=== PATIENT | male | born 1970 | race Caucasian/White ===

== ENCOUNTER → 2018-12-27 08:22 | Outpatient (CLI) | payer OTHER, SELFPAY ==
[2018-12-27 09:55] LABS: Hematocrit 45.2 % (41-53); Hemoglobin 15.6 g/dL (13.5-17.5); Mean Corpuscular HGB Conc 34.5 % (30-36); Mean Corpuscular Hemoglobin 30.6 PG (26-34); Mean Corpuscular Volume 88.6 fL (80-100); Platelet Count 228 X10^3/uL (150-400); Red Cell Distribution Width 13.1 % (11.6-14.8); White Blood Cell Count 5.1 X10^3/uL (4.5-11.0)
[2018-12-27 10:07] LABS: Alanine Aminotransferase 40 IU/L (21-72); Albumin 4.4 g/dL (3.5-5.0); Albumin Globulin Ratio 1.4 (1.0-2.8); Alkaline Phosphatase 37 U/L (38-126); Aspartate Aminotransferase 37 IU/L (17-59); BUN Creatinine Ratio 23.8 (6-22); Bilirubin Total 0.9 mg/dL (0.2-1.3); Blood Urea Nitrogen 19 mg/dL (9-20); Calcium 9.8 mg/dL (8.4-10.2); Carbon Dioxide 30 mmol/L (22-32); Chloride 101 mmol/L (98-107); Cholesterol 142 mg/dL (140-199); Estimated Glomerular Filt Rate > 60.0 mL/min (>60); Globulin 3.2 g/dL (1.7-4.1); Glucose 89 mg/dL (70-100); HDL Cholesterol 53 mg/dL (40-60); HEMOLYSIS < 15 (0-50); LDL Cholesterol Calculated 80 mg/dL (<100); Potassium 4.1 mmol/L (3.4-5.1); Sodium 139 mmol/L (137-145); Total Protein 7.6 g/dL (6.3-8.2); Triglycerides 45 mg/dL (35-150)
[2018-12-27 10:37] LABS: Prostate Specific Antigen 0.535 ng/mL (0.10-4.00)
[2018-12-27 10:39] LABS: TSH w/ Reflex to FT4 1.16 uIU/mL (0.47-4.68)
[2018-12-27 11:59] LABS: Neutrophils Absolute Manual 3315 /uL (3000-5900); Total Cells Counted 100
[2018-12-27 12:00] LABS: RBC Morphology Normal Morphology
== END ==
PROVIDERS: PCP Family Medicine; Visit Provider Family Medicine
DX: M47.816 Spondylosis without myelopathy or radiculopathy, lumbar region (principal); N40.0 Benign prostatic hyperplasia without lower urinary tract symptoms
CPT/HCPCS: 36415; 80053; 80061; 84153; 84443; 85025

== ENCOUNTER → 2019-11-05 10:36 | Outpatient (CLI) | payer OTHER, SELFPAY ==
[2019-11-06 07:45] LABS: COVID19 Sendout Not Detected (Not Detect)
== END ==
PROVIDERS: PCP Family Medicine; Visit Provider Physician Assistant
DX: Z11.59 Encounter for screening for other viral diseases (principal)
CPT/HCPCS: 87635

== ENCOUNTER 2019-11-08 12:47 | Day surgery (SDC) | payer OTHER, SELFPAY ==
[2019-11-08 13:19] VITALS: BP 118/78; PULSE 54; RESP 16; TEMP 36.5; O2SAT 100; BMI 25.1
[2019-11-08] MEDS: LACTATED RINGERS 1,000 ML 200 ML IV (13:20)
--- NOTE | 2019-11-08 13:46 | PM.HP.1 ---
History of Present Illness History of Present Illness Date Patient Seen: 11/08/19 Time Patient Seen: 13:47 Chief complaint: SDC Narrative: The patient presents for colorectal sreening. They have never had any previous examination for such. No personal or family history of colon cancer. On further history denies any recent gastrointestinal symptoms. No nausea, vomiting, abdominal pain, loss of appetite, unexplained weight loss, change in bowel habits, diarrhea, constipation, melena, hematochezia, or bright red blood per rectum. Patient History Medical History Chicken pox (Resolved ~1974) Chronic back pain (Chronic ~2009) Fractures (Chronic) Hearing loss (Chronic ~2000) Mumps (Resolved ~1976) Ruptured tympanic membrane (Chronic ~2008) Shoulder pain (Chronic ~2009) Tinnitus (Chronic ~2000) Surgical History History of tonsillectomy History of vasectomy Family & Social History Family History Grandfather Cancer Diabetes mellitus Stroke Dementia Grandmother Cancer Grandfather Cancer Grandmother Cancer High cholesterol Social History: household members spouse Tobacco & Substance use: Smoking Status Never smoker alcohol intake current alcohol intake frequency 0-2 drinks per day Substance Use Type does not use Meds Home Medications and Allergies Home Medications Medication Instructions Recorded Confirmed Type multivitamin 1 tab PO DAILY 12/25/18 11/08/19 History ketoconazole 2 % topical cream 2 % TOPICAL BID #30 gm 07/26/19 11/08/19 Rx ketoconazole 2 % shampoo 1 applictn TOP 2XW #120 ml 07/30/19 11/08/19 Rx terbinafine HCl 250 mg tablet See Rx Instructions .ROUTE 08/14/19 11/08/19 Rx .COMPLEX #4 tablet Allergies Allergy/AdvReac Type Severity Reaction Status Date / Time No Known Drug Allergies Allergy Unknown Verified 02/06/19 14:35 [NO KNOWN DRUG ALLERGIES] Review of Systems Review of Systems Narrative: A 10 point review of systems is negative except as noted in the HPI Exam Vital Signs (past 8 hours): - 11/08/19 13:19 Temperature 97.7 F Pulse Rate 54 L Respiratory Rate 16 Blood Pressure 118/78 Pulse Oximetry 100 Oxygen Delivery Method Room Air Narrative Exam Narrative: General-no acute distress, well nourished HEENT-moist mucous membranes, no scleral icterus Neck-supple, no lymphadenopathy Chest- non labored respirations, clear to auscultation bilaterally Cardiac-regular rate no peripheral edema Abdomen-soft, nontender, non distended Extremities-warm, well perfused Neurological-alert and oriented, no focal deficits Assessment & Plan Assessment and plan (1) Screening for colon cancer: Status: Acute Assessment & Plan narrative: The patient requires colorectal screening and colonoscopy is recommended. Technical details were discussed. Risks, benefits, alternatives explained. Risks including but not limited to myocardial infarction, aspiration, bleeding, pain, missed lesion, incomplete examination, need for further radiographic studies, colonic perforation, and need for major abdominal surgery were discussed. All questions were answered to their satisfaction, and they are in agreement with this plan. COVID-19 COVID-19 status: Negative
--- NOTE | 2019-11-08 14:14 | PM.OP.ENDO ---
Operative Date/Time/Diagnoses Date of procedure: 11/08/19 Time of procedure: 14:14 Pre-op diagnosis: Screening colonoscopy Post-op diagnosis: same Procedure & Clinicians Study performed: Colonoscopy Same procedure as scheduled: Yes Indications: 49-year-old male presents for 1st routine screening colonoscopy Surgeon: Torey Gan Procedure Notes SCOAP/Timeout: Performed Procedure in detail: Patient placed in left lateral recumbent position. Time out was performed. Procedural sedation was administered with Versed and Fentanyl. Examination began with a thorough inspection of the perianal area there was no evidence of fissures, fistulae, external hemorrhoids or cutaneous malignancy. The colonoscopy scope was then placed into the rectum the the lumen was insufflated with air. The scope was carefully advanced forward. Ultimately the cecum was intubated and confirmed by identification of the ileocecal valve and the confluence of the taenia. The scope was then slowly withdrawn examining colon thoroughly in all directions. In the rectum the rectal columns were identified and retroflexion of the scope was performed for inspection of the distal rectum and anal canal. The colonoscopy was notable for the followin. Quality of the preparation-excellent 2. No masses or polyps Scope withdrawal time: 6 Sedation minutes: 20 Specimen(s): none sent Complications: none Impression: Normal colonoscopy Post-procedure Recommendations: Colonscopy in 10 years Disposition: same day surgery
[2019-11-08] MEDS: MIDAZOLAM 5 MG/5 ML VIAL IV (14:16)
[2019-11-08] MEDS: fentaNYL 250 MCG/5 ML INJ IV (14:17)
[2019-11-08 14:18] VITALS: BP 105/73; PULSE 58; RESP 12; TEMP 36.7; O2SAT 98
[2019-11-08 14:22] VITALS: BP 100/70; PULSE 52; RESP 12; O2SAT 97
[2019-11-08 14:29] VITALS: BP 98/69; PULSE 54; RESP 12; O2SAT 98
[2019-11-08 14:35] VITALS: BP 98/69; PULSE 64; RESP 16; TEMP 36.8; O2SAT 99
[2019-11-08 14:47] VITALS: BP 120/76; PULSE 51; RESP 16; TEMP 36.4; O2SAT 100
== END 2019-11-08 14:53 | disposition home or self-care (01) ==
PROVIDERS: PCP Family Medicine; Referring Provider Surgery; Visit Provider Surgery
PROC: 0DJD8ZZ Inspection of Lower Intestinal Tract, Via Natural or Artificial Opening Endoscopic (ICD-10-PCS; CPT 45378; principal; 2019-11-08 13:45)
DX: Z12.11 Encounter for screening for malignant neoplasm of colon (principal)
CPT/HCPCS: 45378; 99152; J2250; J3010

== ENCOUNTER → 2020-12-22 10:25 | Outpatient (CLI) | payer OTHER, SELFPAY ==
[2020-12-22 10:57] LABS: COVID19 -Nasal RAPID Negative (Negative)
== END ==
PROVIDERS: PCP Family Medicine; Visit Provider Nurse Practitioner Family
DX: Z20.822 Contact with and (suspected) exposure to COVID-19 (principal); R05 Cough; R09.81 Nasal congestion
CPT/HCPCS: 87635

== ENCOUNTER → 2022-05-26 10:09 | Outpatient (CLI) | payer OTHER, SELFPAY ==
[2022-05-26 10:38] LABS: Add Manual Diff / Slide Review NO; Basophils Absolute Auto 0 /uL (0-100); Basophils Percent Auto 0.9 % (0-2); Eosinophils Absolute Auto 100 /uL (0-450); Eosinophils Percent Auto 2.3 % (2-4); Hematocrit 44.7 % (41-53); Lymphocytes Absolute Auto 1500 /uL (1100-4500); Lymphocytes Percent Auto 32.2 % (25-40); Mean Corpuscular HGB Conc 33.6 % (30-36); Mean Corpuscular Hemoglobin 29.9 PG (26-34); Mean Corpuscular Volume 89.1 fL (80-100); Monocytes Absolute Auto 400 /uL (0-900); Neutrophils Absolute Auto 2700 /uL (1500-7000); Neutrophils Percent Auto 55.6 % (50-75); Platelet Count 197 X10^3/uL (150-400); Red Blood Cell Count 5.02 X10^6/uL (4.5-5.9); Red Cell Distribution Width 13.5 % (11.6-14.8); White Blood Cell Count 4.8 X10^3/uL (4.5-11.0)
[2022-05-26 10:50] LABS: Cholesterol 138 mg/dL (140-199); HDL Cholesterol 57 mg/dL (40-60); LDL Cholesterol Calculated 72 mg/dL (<100); Triglycerides 46 mg/dL (35-150)
[2022-05-26 11:22] LABS: Prostate Specific Antigen 0.621 ng/mL (0.10-4.00)
[2022-05-26 11:23] LABS: TSH w/ Reflex to FT4 1.03 uIU/mL (0.47-4.68)
[2022-05-26 11:24] LABS: Testosterone 292 ng/dL (71.8-623)
== END ==
PROVIDERS: PCP Family Medicine; Referring Provider Family Medicine; Visit Provider Family Medicine
DX: Z00.00 Encounter for general adult medical examination without abnormal findings (principal); M47.816 Spondylosis without myelopathy or radiculopathy, lumbar region; H40.059 Ocular hypertension, unspecified eye; R53.83 Other fatigue
CPT/HCPCS: 36415; 80061; 84153; 84403; 84443; 85025

== ENCOUNTER → 2023-06-10 10:02 | Outpatient (CLI) | payer OTHER, SELFPAY ==
[2023-06-10 10:29] LABS: Add Manual Diff / Slide Review NO; Basophils Absolute Auto 0 /uL (0-100); Basophils Percent Auto 0.4 % (0-2); Eosinophils Absolute Auto 100 /uL (0-450); Eosinophils Percent Auto 3.2 % (2-4); Hematocrit 43.1 % (41-53); Hemoglobin 14.8 g/dL (13.5-17.5); Lymphocytes Absolute Auto 1700 /uL (1100-4500); Lymphocytes Percent Auto 40.9 % (25-40); Mean Corpuscular HGB Conc 34.4 % (30-36); Mean Corpuscular Hemoglobin 30.3 PG (26-34); Monocytes Absolute Auto 400 /uL (0-900); Neutrophils Absolute Auto 1900 /uL (1500-7000); Neutrophils Percent Auto 46.5 % (50-75); Platelet Count 216 X10^3/uL (150-400); Red Cell Distribution Width 13.3 % (11.6-14.8); White Blood Cell Count 4.1 X10^3/uL (4.5-11.0)
[2023-06-10 10:49] LABS: Alanine Aminotransferase 31 IU/L (<50); Albumin Globulin Ratio 1.3 (1.0-2.8); Alkaline Phosphatase 39 U/L (38-126); Aspartate Aminotransferase 32 IU/L (17-59); BUN Creatinine Ratio 18.9 (6-22); Blood Urea Nitrogen 18 mg/dL (9-20); Calcium 9.2 mg/dL (8.4-10.2); Carbon Dioxide 30 mmol/L (22-32); Chloride 108 mmol/L (98-107); Cholesterol 126 mg/dL (140-199); Estimated Glomerular Filt Rate > 60 mL/min (>60); Globulin 3.1 g/dL (1.7-4.1); Glucose 97 mg/dL (70-100); HDL Cholesterol 52 mg/dL (40-60); HEMOLYSIS < 15 (0-50); LDL Cholesterol Calculated 61 mg/dL (<100); Potassium 4.3 mmol/L (3.4-5.1); Sodium 139 mmol/L (137-145); Total Protein 7.1 g/dL (6.3-8.2); Triglycerides 64 mg/dL (35-150)
[2023-06-10 11:16] LABS: Prostate Specific Antigen Scrn 0.574 ng/mL (0.1-4.0)
[2023-06-10 11:18] LABS: TSH w/ Reflex to FT4 1.21 uIU/mL (0.47-4.68)
[2023-06-10 11:19] LABS: Testosterone 336 ng/dL (71.8-623)
== END ==
LOC: LAB 10:02
PROVIDERS: PCP Family Medicine; Referring Provider Family Medicine; Visit Provider Family Medicine
DX: R53.83 Other fatigue (principal); Z79.899 Other long term (current) drug therapy; H40.059 Ocular hypertension, unspecified eye; Z13.29 Encounter for screening for other suspected endocrine disorder; Z13.220 Encounter for screening for lipoid disorders; Z12.5 Encounter for screening for malignant neoplasm of prostate
CPT/HCPCS: 36415; 80053; 80061; 84403; 84443; 85025; G0103

== ENCOUNTER → 2024-06-25 08:01 | Outpatient (CLI) | payer OTHER, SELFPAY ==
[2024-06-25 08:35] LABS: Add Manual Diff / Slide Review NO; Basophils Absolute Auto 0 /uL (0-100); Basophils Percent Auto 0.3 % (0-2); Eosinophils Absolute Auto 100 /uL (0-450); Eosinophils Percent Auto 2.3 % (2-4); Hematocrit 46.7 % (41-53); Hemoglobin 15.8 g/dL (13.5-17.5); Lymphocytes Absolute Auto 1600 /uL (1100-4500); Lymphocytes Percent Auto 39.4 % (25-40); Mean Corpuscular HGB Conc 33.9 % (30-36); Mean Corpuscular Hemoglobin 30.7 PG (26-34); Mean Corpuscular Volume 90.7 fL (80-100); Monocytes Absolute Auto 400 /uL (0-900); Monocytes Percent Auto 9.6 % (3-14); Neutrophils Absolute Auto 2000 /uL (1500-7000); Neutrophils Percent Auto 48.4 % (50-75); Platelet Count 214 X10^3/uL (150-400); Red Blood Cell Count 5.14 X10^6/uL (4.5-5.9); Red Cell Distribution Width 13.3 % (11.6-14.8); White Blood Cell Count 4.2 X10^3/uL (4.5-11.0)
[2024-06-25 08:52] LABS: Alanine Aminotransferase 28 IU/L (<50); Albumin 4.6 g/dL (3.5-5.0); Albumin Globulin Ratio 1.6 (1.0-2.8); Alkaline Phosphatase 37 U/L (38-126); Aspartate Aminotransferase 31 IU/L (17-59); BUN Creatinine Ratio 17.5 (6-22); Bilirubin Total 0.9 mg/dL (0.2-1.3); Blood Urea Nitrogen 18 mg/dL (9-20); Carbon Dioxide 27 mmol/L (22-32); Chloride 104 mmol/L (98-107); Cholesterol 157 mg/dL (140-199); Estimated Glomerular Filt Rate > 60 mL/min (>60); Globulin 2.8 g/dL (1.7-4.1); Glucose 108 mg/dL (70-100); HDL Cholesterol 59 mg/dL (40-60); HEMOLYSIS < 15 (0-50); LDL Cholesterol Calculated 88 mg/dL (<100); Potassium 4.4 mmol/L (3.4-5.1); Sodium 139 mmol/L (137-145); Total Protein 7.4 g/dL (6.3-8.2); Triglycerides 52 mg/dL (35-150)
[2024-06-25 09:19] LABS: TSH w/ Reflex to FT4 1.03 uIU/mL (0.47-4.68)
[2024-06-25 09:22] LABS: Prostate Specific Antigen Scrn 0.513 ng/mL (0.1-4.0)
== END ==
LOC: LAB 08:02
PROVIDERS: PCP Family Medicine; Referring Provider Family Medicine; Visit Provider Family Medicine
DX: Z13.0 Encounter for screening for diseases of the blood and blood-forming organs and certain disorders involving the immune mechanism (principal); Z13.29 Encounter for screening for other suspected endocrine disorder; Z13.220 Encounter for screening for lipoid disorders; Z12.5 Encounter for screening for malignant neoplasm of prostate; Z13.228 Encounter for screening for other metabolic disorders
CPT/HCPCS: 36415; 80053; 80061; 84402; 84403; 84443; 85025; G0103

== ENCOUNTER → 2024-10-02 12:44 | Outpatient (CLI) | payer OTHER, SELFPAY ==
--- NOTE | 2024-10-02 12:45 | DI.RAD.S_ITS ---
PROCEDURE: XR LUMBAR SPINE 2-3V INDICATIONS: low back pain TECHNIQUE: 3 views of the lumbar spine were acquired. COMPARISON: None. FINDINGS: Lumbar spine curvature and alignment: Grade 1 L5-S1 spondylolisthesis with probable spondylitic defects noted. The remaining lumbar spine is anatomically aligned Bones: There are no other osseous abnormalities. Disc spaces: Moderate L4-5 and L5-S1 degenerative disc and facet disease Soft tissues: No soft tissue swelling, calcification or mass. IMPRESSION: Grade 1 L5-S1 spondylolisthesis with probable spondylitic defects. If this requires precise diagnosis, suggest lumbar CT or MRI Moderate L4-5 and L5-S1 degenerative disc and facet disease Dictated by: Pramod Martinez M.D. on 10/03/2024 at 11:52 Approved by: Pramod Martinez M.D. on 10/03/2024 at 11:54
--- NOTE | 2024-10-02 12:45 | DI.RAD.S_ITS ---
PROCEDURE: XR CERVICAL SPINE 2V OR 3V INDICATIONS: neck pain TECHNIQUE: Three views of the cervical spine were acquired. COMPARISON: None. FINDINGS: Cervical spine curvature and alignment: Normal. Bones: There are no osseous abnormalities. Disc spaces: Mild C3-4, moderate C4-5 C5-6 C6-7 degenerative disc disease appreciated. Moderate C3-4 through C7-T1 degenerative facet disease Soft tissues: No soft tissue swelling, calcification or mass. IMPRESSION: Degeneration Dictated by: Pramod Martinez M.D. on 10/03/2024 at 11:51 Approved by: Pramod Martinez M.D. on 10/03/2024 at 11:52
== END ==
PROVIDERS: PCP Family Medicine; Referring Provider Family Medicine; Visit Provider Family Medicine
DX: M50.31 Other cervical disc degeneration, high cervical region (principal); M51.369 Other intervertebral disc degeneration, lumbar region without mention of lumbar back pain or lower extremity pain; M51.379 Other intervertebral disc degeneration, lumbosacral region without mention of lumbar back pain or lower extremity pain; M47.812 Spondylosis without myelopathy or radiculopathy, cervical region; M47.816 Spondylosis without myelopathy or radiculopathy, lumbar region; M47.817 Spondylosis without myelopathy or radiculopathy, lumbosacral region; M43.17 Spondylolisthesis, lumbosacral region; M54.50 Low back pain, unspecified
CPT/HCPCS: 72040; 72100

== ENCOUNTER → 2025-01-28 08:52 | Outpatient (CLI) | payer OTHER, SELFPAY | PROVIDERS: PCP Family Medicine; Referring Provider Family Medicine; Visit Provider Urology | DX: R53.83 Other fatigue (principal) | CPT/HCPCS: 36415; 84403 ==

== ENCOUNTER → 2025-01-31 08:28 | Outpatient (CLI) | payer OTHER, SELFPAY ==
[2025-01-31 10:15] LABS: Follicle Stimulating Hormone 3.69 mIU/mL
== END ==
PROVIDERS: Urology; PCP Family Medicine; Referring Provider Family Medicine; Visit Provider Family Medicine
DX: R53.83 Other fatigue (principal)
CPT/HCPCS: 36415; 83001; 83002; 84403